=== PATIENT | male | born 1965 | race Caucasian/White ===

== ENCOUNTER 2020-07-05 12:44 | Emergency (ER) | payer OTHER ==
[~2020-07-05] VITALS: Ht 175.3 cm; Wt 95.3 kg
[2020-07-05] MEDS ORDERED: KETOROLAC TROMETHAMINE 30 MG INJ IVP ONE (13:15)
[2020-07-05] MEDS ORDERED: IV NORMAL SALINE 1000 ML BAG IV ONE (13:15)
[2020-07-05] MEDS ORDERED: ONDANSETRON 4 MG/2 ML VIAL IV ONE (13:15)
[2020-07-05] MEDS ORDERED: ONDANSETRON 4 MG/2 ML VIAL ONE (13:36)
[2020-07-05] MEDS ORDERED: KETOROLAC TROMETHAMINE 30 MG INJ ONE (13:36)
--- NOTE | 2020-07-05 14:15 | NUR ---
Pt had refused EKG and all but 1 blood test. Also had refused meds, stated he had no more pain and had no nausea since arriving in ER.
[2020-07-05 14:19] LABS: POTASSIUM 4.8 mmol/L (3.5-5.1)
[2020-07-05] MEDS ORDERED: ACET1TAB23 PO (14:42)
[2020-07-05 14:46] LABS: *BLOOD, URINE 3+ (NEGATIVE); *COLOR,URINE YELLOW (YELLOW); *KETONES,URINE NEGATIVE (NEGATIVE); *UROBILINOGEN,URINE 0.2 E.U./dl (NORMAL); LEUKOCYTE ESTERASE ,URINE NEGATIVE (NEGATIVE); NITRITE, URINE NEGATIVE (NEGATIVE); PH,URINE 5.5 (5.0-8.0); UGLUCOSE NEGATIVE (NEGATIVE)
[2020-07-05 14:47] LABS: *BILIRUBIN,URIN 1+ (NEGATIVE)
[2020-07-05] MEDS ORDERED: ONDA4TAB11 PO (14:48)
[2020-07-05 14:55] LABS: *CLARITY,URINE HAZY (CLEAR)
[2020-07-05 14:56] LABS: RBC,URINE 50-80 /HPF (0-3)
[2020-07-05 15:00] LABS: BACTERIA,URINE FEW /HPF (NONE SEEN); CALCIUM OXALATE CRYSTALS,UR MODERATE /HPF (NONE SEEN); MUCUS,URINE MODERATE /LPF (0-FEW); SQUAMOUS EPITHELIAL CELL,UR FEW /HPF (NONE SEEN)
--- NOTE | 2020-07-05 15:03 | NUR ---
Removed IV intact, site okay, bandaged. approx 500cc NS left in IV, pt did not want to finish up. Gave Pt RX, RX info, and d/c instructions, pt verbalized understanding.
[2020-07-05 15:28] VITALS: BP 145/93
== END 2020-07-05 15:10 | disposition home or self-care (01) ==
LOC: ER 12:46
DX: N13.2 Hydronephrosis with renal and ureteral calculous obstruction (principal); Z87.442 Personal history of urinary calculi; R16.2 Hepatomegaly with splenomegaly, not elsewhere classified; R03.0 Elevated blood-pressure reading, without diagnosis of hypertension
CPT/HCPCS: 36415; 93005; A4663; J1885; J2405; J7030